=== PATIENT | female | born 1975 | race Caucasian/White ===

== ENCOUNTER → 2016-11-08 | Outpatient (CLI) | payer BC ==
--- NOTE | 2016-11-08 13:46 | Diagnostic Imaging Report ---
EXAMINATION: DIGITAL MAMMO RT DIAG W/CAD. COMPARISON: Diagnostic right breast mammogram of 05/10/2016. Bilateral screening mammograms of 04/26/2016 and 04/09/2015. INDICATION: Followup of potential developing asymmetry in the inferior medial right breast. TECHNIQUE: Digital diagnostic mammography of right breast was performed with a computer-aided detection (CAD) system. FINDINGS: The right breast is heterogeneously dense. The previously noted asymmetry in the inferior medial right breast has resolved. There is normal fibroglandular tissue in this region. No dominant mass or suspicious microcalcifications. IMPRESSION: The followup right mammogram demonstrates resolution of the asymmetry. This indicates that this region was due to normal fibroglandular tissue. Recommend the patient return to bilateral screening mammography which she will be due for in 6 months. ACR BI-RADS Category 1: Negative. Result letter will be mailed to the patient. Note: At least 10% of breast cancer is not imaged by mammography. Dictated by: Dictated on workstation # [id number]
== END ==
LOC: RAD 09:46
PROVIDERS: ATTEND Family Medicine
DX: N64.89 Other specified disorders of breast (principal)